=== PATIENT | male | born 1955 | race Caucasian/White ===

== ENCOUNTER → 2017-02-01 | Outpatient (CLI) | payer OTHER ==
--- NOTE | 2017-02-01 11:17 | KCIC ---
MR of the left knee Indication: Acute pain. Zanoni a pop October 2016. Anteromedial pain. Technique: The standard multiplanar sequences are obtained. Findings: Medial meniscus: Degenerative tear at the posterior horn. Lateral meniscus: Degenerative tear, mostly at the anterior horn. Anterior cruciate ligament: Intact Posterior cruciate ligament: Intact Medial collateral ligament: Partial tear proximally. Iliotibial band: Intact. Posterolateral structures: Mild thickening and signal at the femoral attachment of the fibular collateral ligament, compatible with degeneration. No acute tear or laxity. Degeneration of the popliteus tendon insertion. Extensor mechanism: Intact. Fluid: Small joint effusion. Articular cartilage -patellofemoral joint: Mild chondromalacia of the patella. Moderate at the lower femoral trochlea. -medial compartment: Severe chondromalacia with subchondral bone exposure at the weightbearing aspect. -lateral compartment: Overall mild chondromalacia, moderate at the posterior weightbearing lateral femoral condyle. Bones: No significant lesion or acute fracture. Soft tissue: Small Bedoya's cyst. There is some disorganized fluid below the cyst, compatible with leakage or rupture. Impression: 1. Medial meniscal tear. 2. Lateral meniscal tear. 3. Partial tear of the proximal medial collateral ligament. 4. Small ruptured or leaking Bedoya's cyst. Electronically signed by: Edison Brumfield MD (02/01/2017 11:14 AM) [id number]
== END | disposition home or self-care (01) ==
LOC: KCIC MRI 07:35
PROVIDERS: ATTEND Orthopaedic Surgery
DX: M22.40 Chondromalacia patellae, unspecified knee (principal); S83.249A Other tear of medial meniscus, current injury, unspecified knee, initial encounter
CPT/HCPCS: 73721

== ENCOUNTER → 2017-02-04 | Outpatient (CLI) | payer OTHER ==
--- NOTE | 2017-02-04 16:45 | KCIC ---
Left lower extremity venous Doppler ultrasound History: Left knee and calf pain. Comparison: None. Procedure: Color flow Doppler, Doppler spectral analysis, and 2D images are obtained with and without compression in the area of the common femoral vein, superficial femoral vein - femoral vein junction, main femoral vein (superficial femoral vein) and popliteal vein. Veins of the proximal calf are also imaged. Findings: There is normal color flow, augmentation, and compressibility of all visualized vein segments. No evidence of deep venous thrombus is present. There is a Bedoya's cyst measuring 4.5 x 1.2 x 3.3 cm. IMPRESSION: 1. No evidence of left lower extremity deep venous thrombosis. 2. Bedoya's cyst. Electronically signed by: Kush Garcia MD (02/04/2017 4:42 PM) [id number]
== END | disposition home or self-care (01) ==
LOC: KCIC US 14:53
PROVIDERS: ATTEND Orthopaedic Surgery
DX: M71.22 Synovial cyst of popliteal space [Baker], left knee (principal); M79.662 Pain in left lower leg
CPT/HCPCS: 93971

== ENCOUNTER → 2019-05-28 | Outpatient (CLI) | payer OTHER ==
--- NOTE | 2019-05-28 16:40 | KCIC ---
MR of the left shoulder HISTORY: Left shoulder pain. Injury 2 years ago. Cooks a pop. TECHNIQUE: Routine multiplanar sequences are obtained. FINDINGS: Moderate motion degradation. Acromioclavicular joint is degenerative with undersurface osteophytes and mild mass effect. Full-thickness rotator cuff tear of the supraspinatus tendon measures 2.5 cm AP diameter. Retraction, greater at the articular layer, up to 3 cm. [id number] muscle atrophy. Partial tearing through the infraspinatus tendon. Partial mild subscapularis tendon tear. Mild subdeltoid bursal effusion. Slightly greater atrophy with fatty replacement of the teres minor muscle. This could be seen with chronic denervation. No significant glenohumeral joint effusion. Mild glenohumeral joint DJD. There appears to be a degenerative tear of the superior labrum, somewhat limited visualization due to motion. Signal identified within the anteroinferior labrum. Biceps tendon appears grossly intact. No acute fracture. No aggressive bone destruction. No acute soft tissue abnormality. IMPRESSION: 1. Moderate sized full-thickness rotator cuff tear of the supraspinatus tendon, with partial tearing of the remaining rotator cuff. 2. Superior labral tear. Degeneration or degenerative tearing of the anteroinferior labrum. Electronically signed by: Edison Brumfield MD (05/28/2019 4:37 PM) [place] [id number]
== END ==
LOC: KCIC MRI 14:36
PROVIDERS: ATTEND Orthopaedic Surgery
DX: S43.432A Superior glenoid labrum lesion of left shoulder, initial encounter (principal); M75.122 Complete rotator cuff tear or rupture of left shoulder, not specified as traumatic; M25.712 Osteophyte, left shoulder; M62.512 Muscle wasting and atrophy, not elsewhere classified, left shoulder; M19.012 Primary osteoarthritis, left shoulder; X58.XXXA Exposure to other specified factors, initial encounter; Y93.89 Activity, other specified; Y92.89 Other specified places as the place of occurrence of the external cause; Y99.8 Other external cause status
CPT/HCPCS: 73221

== ENCOUNTER 2019-09-04 08:16 | Outpatient (CLI) | payer OTHER ==
[~2019-09-04] VITALS: Ht 175.3 cm; Wt 120.2 kg
[2019-09-04] VITALS (9 sets, daily range): BP systolic 108–144; BP diastolic 54–75
[2019-09-04 08:50] LABS: BASO # 0.1 x10^3/uL (0.0-0.2); BASO % 1 % (0-3); EOS # 0.2 x10^3/uL (0.0-0.7); EOS % 4 % (0-3); HEMATOCRIT 45.5 % (39.0-53.0); HEMOGLOBIN 15.1 g/dL (13.0-17.5); LYMPH # 1.4 x10^3/uL (1.0-4.8); LYMPH % 24 % (24-48); MEAN CORPUSCULAR HEMOGLOBIN 27 pg (25-35); MEAN CORPUSCULAR HGB CONC 33 g/dL (31-37); MEAN CORPUSCULAR VOLUME 80 fL (79-100); MONO # 0.7 x10^3/uL (0.0-1.1); MONO % 11 % (0-9); NEUT # 3.8 x10^3/uL (1.8-7.7); NEUT % 61 % (31-73); PLATELET COUNT 264 x10^3/uL (140-400); RED BLOOD COUNT 5.72 x10^6/uL (4.30-5.70); RED CELL DISTRIBUTION WIDTH 17.9 % (11.5-14.5); WHITE BLOOD COUNT 6.2 x10^3/uL (4.0-11.0)
[2019-09-04] MEDS ORDERED: GLIP10TA24 PO (08:51)
[2019-09-04] MEDS ORDERED: CRESTOR5 MG PO (08:51)
[2019-09-04] MEDS ORDERED: POTA20TA4 PO (08:51)
[2019-09-04] MEDS ORDERED: GLUCOSAMINE MSM PO (08:51)
[2019-09-04] MEDS ORDERED: OMEG-152 PO (08:51)
[2019-09-04] MEDS ORDERED: ASPI-612 PO (08:51)
[2019-09-04] MEDS ORDERED: LIRA0.6P2 SQ (08:51)
[2019-09-04] MEDS ORDERED: MULT-496 PO (08:51)
[2019-09-04] MEDS ORDERED: TAMS0.4C97 PO (08:51)
[2019-09-04] MEDS ORDERED: fiber caps PO (08:51)
[2019-09-04] MEDS ORDERED: INSU200I4 SQ (08:51)
[2019-09-04] MEDS ORDERED: METO25TA4 PO (08:51)
[2019-09-04] MEDS ORDERED: FURO40TA4 PO (08:51)
[2019-09-04] MEDS ORDERED: CINN500C2 PO (08:51)
[2019-09-04] MEDS ORDERED: black cherry PO (08:51)
[2019-09-04] MEDS ORDERED: DAPA5TAB PO (08:51)
[2019-09-04] MEDS ORDERED: LOSA1TAB25 PO (08:51)
[2019-09-04] MEDS ORDERED: METF-658 PO (08:51)
[2019-09-04 08:59] LABS: PROTHROMBIN TIME PATIENT 12.6 SEC (11.7-14.0)
[2019-09-04] MEDS ORDERED: ceFAZolin SODIUM 3 GM in IV DEXTROSE 5% 100ML 100 ML IV ONE (09:00)
[2019-09-04] MEDS ORDERED: VITA400C37 PO (09:30)
[2019-09-04] MEDS ORDERED: OXYC1TAB15 PO (09:30)
[2019-09-04] MEDS ORDERED: CRANBERRY PO (09:30)
[2019-09-04] MEDS ORDERED: NIAC500C6 PO (09:30)
[2019-09-04] MEDS ORDERED: TURM500C4 PO (09:30)
[2019-09-04] MEDS ORDERED: CYAN100072 PO (09:30)
[2019-09-04] MEDS ORDERED: vitamin d3 PO (09:30)
[2019-09-04] MEDS ORDERED: LIDOCAINE WITH 8.4% SOD BICARB 3 ML DISP.SYRIN. ONE ×2 (09:41→09:44)
[2019-09-04] MEDS ORDERED: IOHEXOL 240 MG/ML 50ML VIAL. ONE (09:45)
[2019-09-04] MEDS ORDERED: MIDAZOLAM HCL/PF 5 MG/5 ML VIAL. IV ONE (10:00)
[2019-09-04] MEDS ORDERED: CONTRAST GIVEN. MC PRN (10:00)
[2019-09-04] MEDS ORDERED: IOHEXOL 240 MG/ML 50ML VIAL. IJ ONE (10:00)
[2019-09-04] MEDS ORDERED: LIDOCAINE WITH 8.4% SOD BICARB 3 ML DISP.SYRIN. IJ ONE (10:00)
[2019-09-04] MEDS ORDERED: fentaNYL PF VIAL 250 MCG/5 ML VIAL IV ONE (10:00)
--- NOTE | 2019-09-04 13:41 | NUR ---
Discharge Note: ALEXANDRU BENITEZ Discharge instructions and discharge home medications reviewed with Patient and a copy given. All questions have been answered and understanding verbalized. The following instructions and handouts were given: kyphoplasty and moderate sedation. Discontinued lines and drains: Left hand IV site dc'd and tip intact. Patient discharged to home with via personal vehicle.
--- NOTE | 2019-09-05 07:39 | RAD ---
Fluoroscopically guided kyphoplasty HISTORY: Patient is a 64-year-old male with persistent significant back pain following fall several weeks ago. MRI shows an acute compression fracture of L3. Patient has also had flank and back pain associated with nephrolithiasis during the same.. His midline back pain has been refractory to conservative treatment measures. Patient presents for kyphoplasty. Fluoro Time: 10.5 min Dose: 177.38 Gycm2 Sedation Time: 44 min Fluoro time:10.5 min Dose area product: 177.38 Gycm2 Moderate sedation: The patient was appropriately monitored by a qualified independent observer throughout the course of the moderate sedation. [id number] sedation time:44 min Consent: The risks and benefits of the procedure were discussed with the patient. Informed consent was obtained. The patient was brought to the fluoroscopy suite and placed in the prone position. A timeout procedure was performed. Preprocedural antibiotics were administered. Procedure: The overlying skin was prepped and draped in the usual sterile fashion. All elements of maximal sterile barrier technique including the use of a cap, mask, sterile gown, sterile gloves, large sterile sheet, appropriate hand hygiene, and 2% chlorhexidine for cutaneous antisepsis (or acceptable alternative antiseptic per current guidelines) were followed for this procedure. Using a left transpedicular approach, and direct fluoroscopic guidance, a trocar needle was advanced to the posterior third of the targeted L3 vertebral body. Vertebral augmentation balloon was then coaxially introduced through the needle, into the more central vertebral body and was deployed. A curved cement delivery needle was advanced into the contralateral vertebral body. Contrast opacified polymethylmethacrylate was then very slowly and carefully introduced through the vertebral augmentation needle, using strict fluoroscopic control. Once adequate filling had been achieved the needles were removed and manual pressure was held. No significant extravasation or complication was identified. Sterile dressing was applied. Patient tolerated the procedure well, without apparent complication. Impression: Fluoroscopically guided kyphoplasty, L3
== END 2019-09-04 13:30 | disposition home or self-care (01) ==
LOC: INTRAD 08:16
PROVIDERS: ATTEND Physician Assistant Medical
DX: M48.56XA Collapsed vertebra, not elsewhere classified, lumbar region, initial encounter for fracture (principal); Z79.01 Long term (current) use of anticoagulants
CPT/HCPCS: 22514; 36415; 85025; 85610; 99152; 99153; C1713; C1758; J0690; J2250; J3010; J3490; J7060; Q9966